=== PATIENT | female | born 1965 | race Caucasian/White ===

== ENCOUNTER 2016-06-08 08:20 | Day surgery (SDC) | payer OTHER ==
[~2016-06-08] VITALS: Ht 162.6 cm; Wt 58.1 kg
[~2016-06-08 08:20] MED LIST: FLAX SEED OIL1000 MG PO; MELOXICAM15 MG PO; OMEGA 31000 MG PO; OMEPRAZOLE40 MG PO; PLAQUENIL200 M1 PO; RANITIDINE HCL150 MG PO; VITAMIN C500 M1 PO; VIVLODEX5 MG PO
--- NOTE | 2016-06-08 12:19 | Provider's Discharge Care Plan ---
Problem, Goal, Plan Problem List 1. S/P EGD WITH SAVORY DILATION TO 19MM Goals: Therapeutic intervention Instructions: Follow up as directed, Take meds as directed
--- NOTE | 2016-06-08 12:19 | Provider's Discharge Care Plan ---
Problem, Goal, Plan Problem List 1. S/P EGD WITH SAVORY DILATION TO 19MM Goals: Therapeutic intervention Instructions: Follow up as directed, Take meds as directed
--- NOTE | 2016-06-08 12:24 | DIAGNOSTIC IMAGING REPORT ---
PROCEDURE: XR FLUORO ENDOSCOPE DILATION INDICATION: DYSPHAGIA TECHNIQUE: C-arm fluoroscopy provided to Dr. Hooker for therapeutic esophageal dilation Fluoroscopy time 1.04 minutes 7.2 mGy). COMPARISON: None. FINDINGS: C-arm fluoroscopy provided to Dr. Hooker for therapeutic esophageal dilation IMPRESSION: 1. C-arm fluoroscopy for therapeutic the esophageal dilation (performed by Dr. Hooker
[2016-06-08 14:12] VITALS: BP 100/73
--- NOTE | 2016-06-08 14:29 | OPERATIVE REPORT ---
DATE OF SURGERY: 06/08/2016 SURGEON: Clayton Hooker III, MD CHARGE AUDITOR: None. PREOPERATIVE DIAGNOSIS: 1. Dysphagia POSTOPERATIVE DIAGNOSIS: 1. 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 Upper gastrointestinal endoscopy with fluoroscopic Savary dilation of esophagus to 19 mm ANESTHESIA: General endotracheal. INDICATIONS: A 51-year-old female with history of dysphagia. Upper GI series, , shows moderate reflux, spasm, narrowing at the cricopharyngeus. Upper GI endoscopy, 01/24/2016, normal. Biopsy of distal esophagus, mild chronic inflammation. A 24- hour manometric study done 03/24/2016: DeMeester score of 2.8, upper esophageal sphincter manometric pressure 168 mm. SURGICAL FINDINGS: Normal-appearing duodenum and duodenal bulb. The gastric mucosal pattern appeared grossly normal. The EG junction was approximately 38 cm from the dental incisors. The esophagus appeared grossly normal. The scope passed easily through the upper cricopharyngeal musculature and upper esophageal sphincter. SURGICAL TECHNIQUE: The patient was brought to the operating room and placed in the dorsal supine position where she underwent general endotracheal anesthesia by the anesthesiology department. After proper anesthesia had taken effect, an Olympus fiberoptic video flexible upper GI endoscope was passed down the patient's posterior pharynx. The esophagus intubated under direct visualization without difficulty. The scope passed easily down the esophagus, through the EG junction, which was approximately 38 cm from the dental incisors, into the gastric lumen and eventually into the second and third portion of the duodenum. On withdrawing the scope, the scope was withdrawn back into the gastric lumen and retroflexed, with a good view of the cardia, fundus, and EG junction from below, as well as the greater and lesser curvature. Through the biopsy channel, a floppy tipped J-wire was passed. The scope was withdrawn, leaving the floppy tipped J-wire within the gastric lumen. Over the wire, Savary dilators were progressively passed, starting with 11 mm, all the way up to 19 mm. Each dilator stayed into position under fluoroscopic guidance for 1 minute, except for the numbers 17 and 19. The 17 stayed in for 2 minutes, the 19 stayed in for 3 minutes. Upon completion, the 19 mm Savary dilator and the floppy tipped wire were removed as a unit, and then an upper GI endoscopy was performed once again using the Olympus fiberoptic upper GI endoscope. It passed easily down the esophagus, through the upper esophageal sphincter, down the esophagus, through the EG junction, back into the gastric lumen where it was retroflexed. Good view of the cardia and fundus from below. The scope was withdrawn, very carefully examining the esophagus. There was no evidence of mucosal tears or bleeding. The scope was then completely withdrawn. The patient tolerated the procedure well and was transferred to the recovery room in stable condition. There were no intraoperative or anesthetic complications.
== END 2016-06-08 15:23 | disposition home or self-care (01) ==
LOC: OR SRH 08:20 → SCU SRH 08:23 → OR SRH 11:00
PROVIDERS: Specialist
PROC: 0D718ZZ Dilation of Upper Esophagus, Via Natural or Artificial Opening Endoscopic (ICD-10-PCS; principal; 2016-06-08 11:00)
DX: R13.14 Dysphagia, pharyngoesophageal phase (principal)

== ENCOUNTER 2016-08-10 09:18 | Day surgery (SDC) | payer OTHER ==
[~2016-08-10] VITALS: Ht 162.6 cm; Wt 57.6 kg
[2016-08-10] VITALS (9 sets, daily range): BP systolic 98–117; BP diastolic 55–75
--- NOTE | 2016-08-10 13:50 | OPERATIVE REPORT ---
DATE OF SURGERY: 08/10/2016 SURGEON: Clayton Hooker III, MD HOT BOX SPOTTER: Rolando Doe MD PREOPERATIVE DIAGNOSIS: 1. Gastroesophageal reflux POSTOPERATIVE DIAGNOSIS: 1. Gastroesophageal reflux PROCEDURE PERFORMED: 1. Laparoscopic closure of hiatal hernia and Toupet fundoplication ANESTHESIA: General endotracheal. ESTIMATED BLOOD LOSS: None. FLUIDS: 600 mL lactated Ringers. PATHOLOGY SPECIMEN: None. INDICATIONS: A 51-year-old female with history of dysphagia and reflux. Manometric study shows a DeMeester score which is normal. A barium swallow shows she has delayed emptying of the esophagus, with reflux and narrowing of the cricopharyngeus. She is status post Savary dilation under fluoroscopic monitoring and no longer experiencing difficulty swallowing, but does have occasional spasms secondary to what she thinks is reflux. She would like to proceed with an antireflux procedure. SURGICAL FINDINGS: The patient was noted to have a small to moderate sized hiatal hernia. SURGICAL TECHNIQUE: The patient was brought to the operating room and placed in the dorsal supine position where she underwent general endotracheal anesthesia by the anesthesiology department. After proper anesthesia had taken effect, the patient was placed in low lithotomy position, her abdomen prepped using Betadine and draped in a sterile fashion. A supraumbilical incision was made and carried down through skin and subcutaneous tissue. A Veress needle was inserted through this site, into the abdominal cavity and, after ascertaining its appropriate position with suction windows infrastructure engineer, pneumoperitoneum obtained using CO2 insufflation to approximately 14-15 mmHg pressure. Once this pressure was reached, the Veress needle was removed and replaced with a 10 mm trocar. The trocar was removed, leaving the sleeve behind, through which a laparoscopic video camera was introduced into the abdominal cavity. Under direct visualization, a 10 mm trocar was placed in the left upper quadrant. It entered the abdominal cavity under direct visualization. A single 5 mm trocar was placed just below the xiphoid, and it entered the abdominal cavity under direct visualization. The trocar removed, leaving the sleeve behind, through which a flexible retractable device was introduced into the abdominal cavity. This intractable device was then stiffened and placed beneath the left lobe of the liver and retracted cephalad and attached to a self-retaining retractor. Under direct visualization, two 5 mm trocars were placed in the epigastric region, approximately 1 handbreadth above. Each entered the abdominal cavity under direct visualization. The trocars were removed, leaving the sleeves behind, through which laparoscopic instrumentation was introduced into the abdominal cavity. Using the Thunderbeat, the crura was identified by incising the upper portion of the hepatogastric ligament. Dissection on the phrenoesophageal ligament then followed, circumferentially isolating the esophagus. The upper portion of the short gastrics was taken down using the Thunderbeat. The right and left bundle of the right crura were approximated using an EndoStitch, 0 Surgidac, extracorporeal knot-tying technique. The upper fundus was then wrapped posteriorly behind the esophagus and secured to the hiatus using the EndoStitch, using a seromuscular bite on the esophagus and a [id number] bite on the crura, thus anchoring the posterior fundus of the stomach to the crura, extracorporeal knot tied. A 180-degree wrap was then created, suturing the muscular portion of the esophagus to the seromuscular portion of the posterior right wrap. This was repeated one more time on the right and twice on the left, thus creating our 180-degree wrap. Hemostasis was assured. The pneumoperitoneum was then released, and the flexible liver retractor was removed from the abdominal cavity. All trocars were removed from the abdominal cavity and all trocar sites approximated using 4-0 subdermal Polysorb and Steri-Strips. A sterile pressure occlusive dressing was placed over each site. The patient tolerated the procedure well, was extubated and transferred to the recovery room in stable condition. There were no intraoperative or anesthetic complications.
[2016-08-11 04:11] VITALS: BP 111/62
[2016-08-11] MEDS ORDERED: ACETAMINOP160 MG/5 M PO (06:46)
--- NOTE | 2016-08-11 06:48 | Provider's Discharge Care Plan ---
Problem, Goal, Plan Problem List 1. S/P LAP TOUPET Goals: Improve disease control, Therapeutic intervention Instructions: Follow up as directed, Take meds as directed
--- NOTE | 2016-08-11 06:48 | Provider's Discharge Care Plan ---
Problem, Goal, Plan Problem List 1. S/P LAP TOUPET Goals: Improve disease control, Therapeutic intervention Instructions: Follow up as directed, Take meds as directed
[2016-08-11 07:20] VITALS: BP 102/65
[2016-08-11 07:47] VITALS: BP 138/68
[2016-08-11 09:28] VITALS: BP 129/72
== END 2016-08-11 13:15 | disposition home or self-care (01) ==
LOC: OR SRH 09:18 → SCU SRH 09:18 → OR SRH 11:00 → ACUTE2 SRH 15:00 → OR SRH 08-11 13:15
PROVIDERS: Specialist
PROC: 0BQR4ZZ (ICD-10-PCS; principal; 2016-08-10 11:00)
PROC: 0BQS4ZZ (ICD-10-PCS; principal; 2016-08-10 11:00)
PROC: 0DV44ZZ Restriction of Esophagogastric Junction, Percutaneous Endoscopic Approach (ICD-10-PCS; principal; 2016-08-10 11:00)
DX: K21.0 Gastro-esophageal reflux disease with esophagitis (principal); K44.9 Diaphragmatic hernia without obstruction or gangrene

== ENCOUNTER 2016-08-15 08:49 | Observation (INO) | payer OTHER ==
[~2016-08-15] VITALS: Ht 162.6 cm; Wt 56.0 kg
[~2016-08-15 08:49] MED LIST changes: +ACETAMINOP160 MG/5 M PO
[2016-08-15 09:06] VITALS: BP 104/56
[2016-08-15 13:30] VITALS: BP 104/56; BP 140/86
[2016-08-15 14:27] VITALS: BP 104/69
[2016-08-15 18:14] VITALS: BP 120/82
[2016-08-16 02:33] VITALS: BP 100/67
[2016-08-16 06:33] VITALS: BP 104/70
[2016-08-16 10:50] VITALS: BP 109/69
[2016-08-16 14:38] VITALS: BP 111/76
[2016-08-16 18:24] VITALS: BP 101/67
[2016-08-16 22:42] VITALS: BP 112/64
[2016-08-17 02:21] VITALS: BP 119/78
[2016-08-17 06:46] VITALS: BP 121/78
[2016-08-17 10:52] VITALS: BP 122/58
[2016-08-17 14:39] VITALS: BP 106/69
[2016-08-17 19:39] VITALS: BP 105/75
[2016-08-17 22:59] VITALS: BP 113/76
[2016-08-18 02:49] VITALS: BP 102/67
[2016-08-18 06:25] VITALS: BP 107/72
[2016-08-18] MEDS ORDERED: TRANSDERM-SCOP1.5 MG TOP (06:41)
--- NOTE | 2016-08-18 06:43 | Provider's Discharge Care Plan ---
Problem, Goal, Plan Problem List 1. Postoperative nausea Goals: Improve disease control Instructions: Follow up as directed, Take meds as directed, full liquid diet
--- NOTE | 2016-08-18 06:43 | Provider's Discharge Care Plan ---
Problem, Goal, Plan Problem List 1. Postoperative nausea Goals: Improve disease control Instructions: Follow up as directed, Take meds as directed, full liquid diet
--- NOTE | 2016-08-18 07:16 | DISCHARGE SUMMARY ---
ADMIT DATE: 08/15/2016 DISCHARGE DATE: 08/18/2016 ADMISSION DIAGNOSES: 1. Postoperative nausea DISCHARGE DIAGNOSES: 1. Postoperative nausea PROCEDURE PERFORMED: 1. None BRIEF HISTORY: A 51-year-old female status post closure of small/moderate hiatal hernia with Toupet procedure on 08/10/2016, was discharged home 08/11/2016, tolerating a clear liquid. No dysphagia, no nausea. The following day she advanced her diet to full liquid diet and developed dysphagia and nausea. The following day, began to retch with no improvement in spite of Phenergan suppositories. She denies any fever or chills, had been passing flatus and had been having bowel movements. The nausea was so severe that it led to retching that she could not control. HOSPITAL COURSE: She was admitted for observation. On physical examination, her vital signs were stable. She was afebrile. Her abdomen was nondistended. She had positive bowel sounds. Her trocar sites were clean with no evidence of cellulitis. White count 8.0, hemoglobin and hematocrit 13.4 and 37.8 respectively. Her electrolytes were all normal. She was treated with IV hydration, Zofran IV, and Phenergan IV. Eventually we added Scopolamine transdermal patch, which controlled the nausea. She was started on a clear liquid diet, which was advanced to a full liquid diet and she was discharged on hospital day #3. Condition at time of discharge: Ambulating, passing flatus, tolerating a full liquid diet. No dysphagia, no nausea. Her abdominal trocar sites were clean. DISCHARGE INSTRUCTIONS/MEDICATIONS: She was discharged home to remain on her home medications to include: 1. Plaquenil 400 mg daily. 2. Omeprazole 40 mg daily. 3. Ranitidine 150 mg daily. 4. She was discharged on a Scopolamine transdermal patch 1.5 mg q.72 hours. 5. She was instructed on wound care, continue on a full liquid diet. No carbonated drinks. To follow up with [facility] in 1 week.
== END 2016-08-18 14:20 | disposition home or self-care (01) ==
LOC: ACUTE2 SRH 08:49
PROVIDERS: ADMIT Specialist
DX: K91.0 Vomiting following gastrointestinal surgery (principal)
CPT/HCPCS: 29230; 29242; 29246; 29247; 29263; 90047; 95059

== ENCOUNTER 2016-10-13 12:13 | Outpatient (CLI) | payer OTHER ==
[~2016-10-13 12:13] MED LIST changes: +TRANSDERM-SCOP1.5 MG TOP
--- NOTE | 2016-10-13 14:04 | DIAGNOSTIC IMAGING REPORT ---
PROCEDURE: XR KNEE 3 VIEWS - LEFT INDICATION: KNEE PAIN TECHNIQUE: Three views. COMPARISON: None. FINDINGS: Patellofemoral osteoarthritis with narrowing of the joint space laterally. IMPRESSION: 1. Patellofemoral osteoarthritis with narrowing of the joint space laterally
== END 2016-10-13 23:00 ==
LOC: XR SRH 12:13
DX: M17.12 Unilateral primary osteoarthritis, left knee (principal)